=== PATIENT | female | born 1975 | race Caucasian/White ===

== ENCOUNTER 2020-04-02 13:23 | Emergency (ER) | payer OTHER ==
[2020-04-02] MEDS ORDERED: LIDOCAINE 1% MPF 5 ML VIAL ONE (15:32)
[2020-04-02] MEDS ORDERED: TETANUS & DIPHTHERIA TOX,ADULT 0.5 ML VIAL ONE (15:32)
--- NOTE | 2020-04-02 15:59 | EDPHYS ---
[facility]ation [facility] Name: Sandra Cooper Age: 44 yrs Sex: Female : 1975 Arrival Date: 04/02/2020 Time: 13:30 Bed 23 Private MD: ED Physician Chucky El HPI: 04/02 15:09 This 44 yrs old Female presents to ER via Ambulatory with complaints of pm1 Laceration - To Face. 17:02 The patient or guardian reports a laceration, 2 cm(s), irregular. The complaints affect pm1 the right zygomatic area. Context of injury: The problem was sustained at home, resulted from Shelf fell down and cut her face. Onset: The symptoms/episode began/occurred just prior to arrival. Associated signs and symptoms: Loss of consciousness: This patient did not experience any loss of consciousness. Pertinent negatives: the patient has not experienced a loss of conciousness, headache, neck pain. Severity of symptoms: in the emergency department the symptoms have improved, no longer bleeding. The patient has not experienced similar symptoms in the past. The patient has not recently seen a physician. Historical: - Allergies: 13:35 PENICILLINS; tw2 - Home Meds: 13:35 None [Active]; tw2 - PMHx: 13:35 None; tw2 - PSHx: 13:35 None; tw2 - Immunization history:: Last tetanus immunization: unknown. - Social history:: Smoking status: Patient reports the use of cigarette tobacco products, smokes one-half pack cigarettes per day. ROS: 17:02 Constitutional: Negative for fever, chills, and weight loss, Neck: Negative for injury, pm1 pain, and swelling, Cardiovascular: Negative for chest pain, palpitations, and edema, Respiratory: Negative for shortness of breath, cough, wheezing, and pleuritic chest pain, Abdomen/GI: Negative for abdominal pain, nausea, vomiting, diarrhea, and constipation, MS/Extremity: Negative for injury and deformity. 17:02 Neuro: Negative for headache, weakness, numbness, tingling, and seizure. 17:02 Skin: Positive for laceration(s), of the right zygomatic area. Exam: 17:02 Constitutional: This is a well developed, well nourished patient who is awake, alert, pm1 and in no acute distress. 17:02 Back: No spinal tenderness. No costovertebral tenderness. Full range of motion. MS/ Extremity: Pulses equal, no cyanosis. Neurovascular intact. Full, normal range of motion. 17:02 Head/face: Noted is no obvious of injury or deformity except a laceration(s), 2 cm(s), of the right zygomatic area, preauricular . 17:02 Cardiovascular: Exam negative for acute changes, Rate: normal, Rhythm: regular, Pulses: no pulse deficits are appreciated. 17:02 Respiratory: Exam negative for acute changes, respiratory distress, shortness of breath. 17:02 Skin: Appearance: normal except for affected area, injury, laceration(s), the wound is approximately 2 cm(s), of the right zygomatic area, that can be described as clean, no foreign body, irregular, without bleeding. Vital Signs: 13:33 BP 116 / 81; Pulse 103; Resp 18; Temp 97.9(TE); Pulse Ox 99% on R/A; Weight 68.04 kg tw2 (R); Height 5 ft. 3 in. (160.02 cm); Pain 5/10; 13:33 Body Mass Index 26.57 (68.04 kg, 160.02 cm) tw2 [place] Coma Score: 17:02 Eye Response: spontaneous(4). Verbal Response: oriented(5). Motor Response: obeys pm1 commands(6). Total: 15. Laceration: 15:55 Wound Repair of 2cm ( 0.8in ) subcutaneous laceration to right zygomatic area. pm1 Irregularly shaped.. Distal neuro/vascular/tendon intact. Anesthesia: Local anesthetic administered with 1 mls of 1% lidocaine. Wound prep: Extensive cleansing with hibiclenz by nc, Wound irrigation with saline by nc, Wound explored extensively, Copious irrigation. Skin closed with 5 6-0 Prolene using simple sutures and sterile technique. Subcutaneous tissue closed with 1 6-0 fast absorbing gut using simple sutures and sterile technique. Patient tolerated well. MDM: 15:06 Patient medically screened. pm1 15:55 Data reviewed: vital signs. Counseling: I had a detailed discussion with the patient pm1 and/or guardian regarding: the historical points, exam findings, and any diagnostic results supporting the discharge/admit diagnosis, the need for outpatient follow up, suture removal in 4-5 days. 04/02 15:09 Order name: Prolene, Sutures; Complete Time: 15:22 pm1 04/02 15:09 Order name: Dressing - Wound; Complete Time: 15:22 pm1 04/02 15:09 Order name: Gloves, Sterile; Complete Time: 15:22 pm1 04/02 15:09 Order name: Setup Suture Tray; Complete Time: 15:22 pm1 04/02 15:55 Order name: Dermabond; Complete Time: 16:00 pm1 Administered Medications: 15:20 Drug: Tetanus-Diphtheria Toxoid Adult 0.5 ml {Skein Spooler: Uguru. Exp: hb 04/28/2022. Lot #: [id number]. } Route: IM; Site: right deltoid; 15:22 Drug: Lidocaine (1 %) 5 ml Volume: 5 ml; Route: Infiltration; hb Disposition: 16:32 Co-signature as Attending Physician, Chucky El MD. rn Disposition: 04/02/20 15:58 Discharged to Home. Impression: Laceration without foreign body of unspecified part of head. - Condition is Stable. - Discharge Instructions: Facial Laceration, Stitches, Pe Ell, or Adhesive Wound Closure. - Prescriptions for Doxycycline Hyclate 100 mg Oral Tablet - take 1 tablet by ORAL route every 12 hours; 20 tablet. - Medication Reconciliation Form, Thank You Letter, Antibiotic Education, Prescription Opioid Use form. - Follow up: Emergency Department; When: As needed; Reason: Worsening of condition. Follow up: Private Physician; When: 2 - 3 days; Reason: Recheck today's complaints, Continuance of care, Re-evaluation by your physician. - Problem is new. - Symptoms have improved. Signatures: Chucky El MD MD rn Marinas, Patrick, NP FI[employer] LIEUTENANT MARINE pm1 Kisha De Leon RN RN Abbie Amor RN RN tw2 Corrections: (The following items were deleted from the chart) 16:26 15:58 04/02/2020 15:58 Discharged to Home. Impression: Laceration without foreign body hb of unspecified part of head. Condition is Stable. Discharge Instructions: Facial Laceration, Stitches, Pe Ell, or Adhesive Wound Closure. Prescriptions for Bactrim DS 800-160 mg Oral Tablet - take 1 tablet by ORAL route every 12 hours for 10 days; 20 tablet. and Forms are Medication Reconciliation Form, Thank You Letter, Antibiotic Education, Prescription Opioid Use. Follow up: Emergency Department; When: As needed; Reason: Worsening of condition. Follow up: Private Physician; When: 2 - 3 days; Reason: Recheck today's complaints, Continuance of care, Re-evaluation by your physician. Problem is new. Symptoms have improved. pm1
--- NOTE | 2020-04-02 15:59 | ER ---
Nurse's Notes [facility] Name: Sandra Cooper Age: 44 yrs Sex: Female : 1975 Arrival Date: 04/02/2020 Time: 13:30 Bed 23 Private MD: Diagnosis: Laceration without foreign body of unspecified part of head Presentation: 04/02 13:33 Chief complaint: Patient states: i was cleaning out my garage all morning, and this tw2 shelf had a metal clip and that is what got me in the side of my head, denies LOC. Coronavirus screen: At this time, the client does not indicate any symptoms associated with coronavirus-19. Ebola Screen: Patient denies travel to an Ebola-affected area in the 21 days before illness onset. Complicating Factors: There are no complicating factors for this patient. Initial Sepsis Screen: Does the patient meet any 2 criteria? HR > 90 bpm. No. Patient's initial sepsis screen is negative. Does the patient have a suspected source of infection? No. Patient's initial sepsis screen is negative. Risk Assessment: Do you want to hurt yourself or someone else? Patient reports no desire to harm self or others. Onset of symptoms was April 02, 2020. 13:33 Method Of Arrival: Ambulatory tw2 13:33 Acuity: KILLIAN 3 tw2 Triage Assessment: 13:35 General: Appears in no apparent distress. Behavior is cooperative, appropriate for age, tw2 anxious. Pain: Complains of pain in right lutheran. Injury Description: Laceration sustained to right lutheran was sustained 30-60 minutes ago. is bleeding a small amount. Historical: - Allergies: 13:35 PENICILLINS; tw2 - Home Meds: 13:35 None [Active]; tw2 - PMHx: 13:35 None; tw2 - PSHx: 13:35 None; tw2 - Immunization history:: Last tetanus immunization: unknown. - Social history:: Smoking status: Patient reports the use of cigarette tobacco products, smokes one-half pack cigarettes per day. Screenin:00 Abuse screen: Denies threats or abuse. Denies injuries from another. Nutritional hb screening: No deficits noted. Tuberculosis screening: No symptoms or risk factors identified. Fall Risk None identified. Assessment: 15:15 General: Appears in no apparent distress. Behavior is calm, cooperative. Pain: Pain hb currently is 5 out of 10 on a pain scale. Neuro: Level of Consciousness is awake, alert, obeys commands, Oriented to person, place, time, situation. Cardiovascular: Capillary refill < 3 seconds Patient's skin is warm and dry. Respiratory: Respiratory effort is even, unlabored, Respiratory pattern is regular, symmetrical. GI: No signs and/or symptoms were reported involving the gastrointestinal system. : No signs and/or symptoms were reported regarding the genitourinary system. EENT: No signs and/or symptoms were reported regarding the EENT system. Derm: Skin is pink, warm \T\ dry. Musculoskeletal: No signs and/or symptoms reported regarding the musculoskeletal system. Injury Description: Laceration sustained to right lutheran is jagged, 0.5 to 2.5 cm long, was sustained 30-60 minutes ago. 16:00 Reassessment: Patient appears in no apparent distress at this time. Patient and/or hb family updated on plan of care and expected duration. Pain level reassessed. Patient is alert, oriented x 3, equal unlabored respirations, skin warm/dry/pink. Vital Signs: 13:33 BP 116 / 81; Pulse 103; Resp 18; Temp 97.9(TE); Pulse Ox 99% on R/A; Weight 68.04 kg tw2 (R); Height 5 ft. 3 in. (160.02 cm); Pain 5/10; 13:33 Body Mass Index 26.57 (68.04 kg, 160.02 cm) tw2 [place] Coma Score: 17:02 Eye Response: spontaneous(4). Verbal Response: oriented(5). Motor Response: obeys pm1 commands(6). Total: 15. ED Course: 13:30 Patient arrived in ED. ds1 13:35 Triage completed. tw2 13:36 Arm band placed on. tw2 15:06 Dougie Anderson NP is PHCP. pm1 15:06 Chucky El MD is Attending Physician. pm1 15:13 Kisha De Leon, MAGDALENA is Primary Nurse. hb 16:00 Bed in low position. hb 16:25 No provider procedures requiring assistance completed. Patient did not have IV access hb during this emergency room visit. Administered Medications: 15:20 Drug: Tetanus-Diphtheria Toxoid Adult 0.5 ml {Thimble Press Operator: [employer]. Exp: hb 04/28/2022. Lot #: [id number]. } Route: IM; Site: right deltoid; 15:22 Drug: Lidocaine (1 %) 5 ml Volume: 5 ml; Route: Infiltration; hb Outcome: 15:58 Discharge ordered by MD. pm1 16:25 Discharged to home ambulatory. hb 16:25 Condition: stable 16:25 Discharge instructions given to patient, Instructed on discharge instructions, follow up and referral plans. medication usage, wound care, Demonstrated understanding of instructions, follow-up care, medications, wound care, Prescriptions given X 1. 16:26 Patient left the ED. hb Signatures: Debby Bhatia ds1 Dougie Anderson NP BUTT MAKER pm1 Kisha De Leon RN RN Abbie Amor RN RN tw2
[2020-04-02] MEDS ORDERED: DERMABOND SKIN ADHESIVE TOP ONE (16:07)
[2020-04-02 16:31] VITALS: BP 116/81; TEMP 97.9; O2SAT 99
== END 2020-04-02 16:26 | disposition home or self-care (01) ==
LOC: ER 13:23
PROC: 0HQ1XZZ Repair Face Skin, External Approach (ICD-10-PCS; principal; 2020-04-02)
DX: S01.81XA Laceration without foreign body of other part of head, initial encounter (principal); Z23 Encounter for immunization; F17.210 Nicotine dependence, cigarettes, uncomplicated
CPT/HCPCS: 90471; 90714; 99283

== ENCOUNTER 2020-04-06 09:37 | Emergency (ER) | payer OTHER ==
--- NOTE | 2020-04-06 10:26 | EDPHYS ---
Physician Documentation [facility] Name: Sandra Cooper Age: 44 yrs Sex: Female : 1975 Arrival Date: 04/06/2020 Time: 09:38 Bed 14 Private MD: ED Physician Luis Palomino HPI: 04/06 10:23 This 44 yrs old Female presents to ER via Ambulatory with complaints of cp Suture Recheck. 10:23 Patient presents to ED for recheck of: laceration. The affected area is on the right cp orthodox area of face. Previous treatment: The patient was initially treated 5 day(s) ago, the care was rendered at [facility], Treatment type: The patient's original treatment included sutures. Progress: The patient reports excellent improvement in the affected area. There has been resolution, improvement, or non-development of any drainage, fever, pain, redness or swelling. HOSPITALIST MEDICAL DIRECTOR: 10:35 LMP N/A - iw Historical: - Allergies: 10:10 PENICILLINS; ll1 - PSHx: 10:10 None; ll1 - Immunization history:: Flu vaccine is not up to date. - Social history:: Smoking status: Patient reports the use of cigarette tobacco products, smokes one pack cigarettes per day. ROS: 10:24 All other systems are negative. cp Exam: 10:25 Skin: Wound recheck: Suture laceration closure: the wound is healing well, the edges cp are well approximated, no evidence of dehiscence, no drainage, no erythema, minimal swelling. Vital Signs: 10:10 BP 115 / 75; Pulse 80; Resp 16; Temp 98.4; Pulse Ox 100% ; Weight 68.04 kg; Height 5 ll1 ft. 3 in. (160.02 cm); Pain 0/10; 10:10 Body Mass Index 26.57 (68.04 kg, 160.02 cm) ll1 MDM: 10:11 Patient medically screened. cp 10:25 Data reviewed: vital signs, nurses notes, and as a result, I will discharge patient. cp 10:25 Differential diagnosis: cellulitis. cp 10:25 Counseling: I had a detailed discussion with the patient and/or guardian regarding: the cp historical points, exam findings, and any diagnostic results supporting the discharge/admit diagnosis, to return to the emergency department if symptoms worsen or persist or if there are any questions or concerns that arise at home. Administered Medications: No medications were administered Disposition: 10:35 Chart complete. cp 14:21 Co-signature as Attending Physician, Luis Palomino MD I agree with the assessment and kdr plan of care. Disposition: 04/06/20 10:26 Discharged to Home. Impression: Encounter for attention to dressings, sutures and drains. - Condition is Stable. - Discharge Instructions: Wound Check. - Medication Reconciliation Form, Thank You Letter, Antibiotic Education, Prescription Opioid Use form. - Follow up: Private Physician; When: 2 - 3 days; Reason: Staple/Suture removal. - Problem is new. - Symptoms have improved. Signatures: Luis Palomino MD MD [facility] Liberty Garcia RN RN ss Duke Hyatt PA PA cp Henrietta Armendariz RN RN ll1 Corrections: (The following items were deleted from the chart) 10:36 10:26 04/06/2020 10:26 Discharged to Home. Impression: Encounter for attention to ss dressings, sutures and drains. Condition is Stable. Forms are Medication Reconciliation Form, Thank You Letter, Antibiotic Education, Prescription Opioid Use. Follow up: Private Physician; When: 2 - 3 days; Reason: Staple/Suture removal. Problem is new. Symptoms have improved. cp
--- NOTE | 2020-04-06 10:26 | ER ---
Nurse's Notes [facility] Name: Sandra Cooper Age: 44 yrs Sex: Female : 1975 Arrival Date: 04/06/2020 Time: 09:38 Bed 14 Private MD: Diagnosis: Encounter for attention to dressings, sutures and drains Presentation: 04/06 10:10 Chief complaint: Patient states: Needs stitches removed from right side of face (near ll1 judaism area). No fever or drainage from site. Coronavirus screen: Client denies travel out of the [place] in the last 14 days. At this time, the client does not indicate any symptoms associated with coronavirus-19. Ebola Screen: Patient denies travel to an Ebola-affected area in the 21 days before illness onset. Initial Sepsis Screen: Does the patient meet any 2 criteria? No. Patient's initial sepsis screen is negative. Does the patient have a suspected source of infection? Yes: Skin breakdown/wound. Risk Assessment: Do you want to hurt yourself or someone else? Patient reports no desire to harm self or others. Onset of symptoms was April 02, 2020. 10:10 Method Of Arrival: Ambulatory 1 10:10 Acuity: KILLIAN 5 ll1 CREDIT AND COLLECTION MANAGER: 10:35 LMP N/A - iw Historical: - Allergies: 10:10 PENICILLINS; ll1 - PSHx: 10:10 None; ll1 - Immunization history:: Flu vaccine is not up to date. - Social history:: Smoking status: Patient reports the use of cigarette tobacco products, smokes one pack cigarettes per day. Screenin:35 Abuse screen: Denies threats or abuse. Denies injuries from another. Nutritional ss screening: No deficits noted. Tuberculosis screening: Never had TB. Fall Risk None identified. Assessment: 10:35 General: Appears in no apparent distress. comfortable, Behavior is calm, cooperative. ss Pain: Denies pain. Neuro: Level of Consciousness is awake, alert, obeys commands. Respiratory: Airway is patent Respiratory effort is even, unlabored, Respiratory pattern is regular, symmetrical. GI: No signs and/or symptoms were reported involving the gastrointestinal system. EENT: Nares are clear Oral mucosa is moist. Derm: Skin is intact, is healthy with good turgor, Skin is pink, warm \T\ dry. normal. Vital Signs: 10:10 BP 115 / 75; Pulse 80; Resp 16; Temp 98.4; Pulse Ox 100% ; Weight 68.04 kg; Height 5 ll1 ft. 3 in. (160.02 cm); Pain 0/10; 10:10 Body Mass Index 26.57 (68.04 kg, 160.02 cm) ll1 ED Course: 09:38 Patient arrived in ED. ds1 10:04 Duke Hyatt PA is PHCP. cp 10:04 Luis Palomino MD is Attending Physician. cp 10:09 Arm band placed on Patient placed in an exam room, on a stretcher. ll1 10:12 Triage completed. ll1 10:35 Hawa Maldonado, RN is Primary Nurse. iw 10:35 Patient has correct armband on for positive identification. Bed in low position. Call ss light in reach. 10:36 No provider procedures requiring assistance completed. Patient did not have IV access ss during this emergency room visit. Administered Medications: No medications were administered Outcome: 10:26 Discharge ordered by MD. cp 10:36 Discharged to home ambulatory. ss 10:36 Condition: good 10:36 Discharge instructions given to patient, Instructed on discharge instructions, follow up and referral plans. Demonstrated understanding of instructions, follow-up care, wound care. 10:36 Patient left the ED. ss Signatures: Debby Bhatia ds1 Hawa Maldonado, RN MAGDALENA Liberty Garcia RN RN Duke Hyatt PA PA cp Lewis, Lynsay, RN RN ll1
== END 2020-04-06 10:36 | disposition home or self-care (01) ==
LOC: ER 09:37
DX: Z48.02 Encounter for removal of sutures (principal); Z88.0 Allergy status to penicillin; F17.210 Nicotine dependence, cigarettes, uncomplicated
CPT/HCPCS: 99281